=== PATIENT | male | born 2000 | race Caucasian/White ===

== ENCOUNTER 2024-02-18 15:47 | Inpatient (IN) | payer MEDICAID ==
[~2024-02-18] VITALS: Ht 177.8 cm; Wt 75.4 kg
[2024-02-18 16:29] LABS: BASOPHILS # (AUTO) 0.1 X10'3 (0-0.2); BASOPHILS % (AUTO) 0.8 % (0-1); EOSINOPHILS # (AUTO) 0.1 X10'3 (0-0.9); EOSINOPHILS % (AUTO) 0.6 % (0-6); HEMATOCRIT 39.5 % (42.0-52.0); LYMPHOCYTES # (AUTO) 1.5 X10'3 (1.1-4.8); LYMPHOCYTES % (AUTO) 17.6 % (21-51); MEAN CORPUSCULAR HEMOGLOBIN 31.8 PG (27.0-31.0); MEAN CORPUSCULAR HGB CONC 35.5 g/dL (33.0-36.5); MEAN CORPUSCULAR VOLUME 89.7 FL (78-98); MEAN PLATELET VOLUME 8.5 FL (7.4-10.4); MONOCYTES # (AUTO) 0.9 X10'3 (0-0.9); MONOCYTES % (AUTO) 10.1 % (2-12); NEUTROPHILS # (AUTO) 6.1 X10'3 (1.8-7.7); NEUTROPHILS % (AUTO) 70.9 % (42-75); PLATELET COUNT 162 X10'3 (140-440); RED CELL DISTRIBUTION WIDTH 12.9 % (11.5-14.5); WHITE BLOOD COUNT 8.6 X10'3 (4.5-11.0)
[2024-02-18 16:35] LABS: ALBUMIN 4.6 G/DL (3.4-5.0); ANION GAP 10 (8-16); BLOOD UREA NITROGEN 13 MG/DL (7-18); BUN/CREATININE RATIO 13.3 (10.0-20.0); CALCIUM 9.5 MG/DL (8.5-10.1); CHLORIDE 99 MMOL/L (99-107); CREATININE 0.98 MG/DL (0.60-1.10); ETHANOL < 10 MG/DL (<10); GLUCOSE 92 MG/DL (70-104); POTASSIUM 3.9 MMOL/L (3.5-5.1); SODIUM 136 MMOL/L (135-145); TOTAL CARBON DIOXIDE 27.5 MMOL/L (24-32); eCRCL 126 ML/MIN; eGFR > 90 ML/MIN
[2024-02-18 17:00] LABS: URINE AMPHETAMINE SCREEN NEGATIVE (Neg); URINE BARBITUATE SCREEN NEGATIVE (Neg); URINE BENZODIAZEPINES SCREEN NEGATIVE (Neg); URINE CANNABINOID SCREEN NEGATIVE (Neg); URINE COCAINE SCREEN NEGATIVE (Neg); URINE METHADONE SCREEN NEGATIVE (Neg); URINE OPIATE SCREEN NEGATIVE (Neg); URINE PHENCYCLIDINE SCREEN NEGATIVE (Neg)
--- NOTE | 2024-02-18 17:20 | NUR ---
report called to darrian in overflow
[2024-02-18 17:42] LABS: ALANINE AMINOTRANSFERASE 22 U/L (12-78); ALBUMIN/GLOBULIN RATIO 1.5 (1.1-1.5); ALKALINE PHOSPHATASE 77 IU/L (46-116); ASPARTATE AMINO TRANSFERASE 25 U/L (10-37); BILIRUBIN,DIRECT 0.3 MG/DL (0-0.3); BILIRUBIN,TOTAL 1.3 MG/DL (0.1-1.0); THYROID STIMULATING HORMONE 0.49 ulU/ml (0.34-4.50); TOTAL PROTEIN 7.6 G/DL (6.4-8.2)
--- NOTE | 2024-02-18 18:10 | NUR ---
Patient is awake alert. No distress observed. Patient denies S/I. Patient states he is here because he step mom kept making him see things and his dad just caved in. RN asked why he has a knife. Patient states he has a knife for self defense. "I am a patriot". Patient denies planning on using it on anyone. Patient appears disorganized. Possibly first psychotic break.
--- NOTE | 2024-02-18 18:23 | NUR ---
Patient moved back to ED Main.
--- NOTE | 2024-02-18 18:53 | NUR ---
PT RECEIVED IN ED BED 10 SITTING IN NAD, RESPIRATIONS EASY AND REGULAR. MEAL FORM FAXED TO DIETARY AT THIS TIME. PT DENIES ANY HOME MEDICATIONS OR ANY OTHER NEEDS AT THIS TIME
[2024-02-18] MEDS ORDERED: NO HOME MEDS (19:25)
--- NOTE | 2024-02-18 19:39 | NUR ---
PT STILL HUNGRY, SECOND MEAL REQUEST FAXED TO DIETARY AT THIS TIME
--- NOTE | 2024-02-18 19:57 | NUR ---
PT AMBULATORY TO BATHROOM WITH TECH
--- NOTE | 2024-02-18 22:18 | NUR ---
PT RESTING ON R SIDE IN BED IN NAD RESPIRATIONS EASY AND REGULAR NO NEEDS AT THIS TIME
--- NOTE | 2024-02-18 22:40 | NUR ---
PACKET FAXED TO [facility]
--- NOTE | 2024-02-19 00:57 | NUR ---
PT RESTING QUIETLY IN BED IN NAD RESPIRATIONS EASY AND REGULAR NO NEEDS AT THIS TIME
--- NOTE | 2024-02-19 05:41 | NUR ---
PT RESTING IN BED IN NAD RESPIRATIONS EASY AND REGULAR NO NEEDS AT THIS TIME
--- NOTE | 2024-02-19 09:20 | NUR ---
ADINAH CLINICIAN AT BEDSIDE WITH PT.
--- NOTE | 2024-02-19 10:02 | NUR ---
PT IS GETTING ANXIOUS , [facility] LONNY FANG TOLD THE PT THAT HE IS PLACED ON [address] AND [facility] WILL START LOOKING FOR THE PLACEMENT .PT STATED HE WANT TO LEAVE THE HOSPITAL AND GO TO [place] AND GO [place] .PT STANDING BY THE DOOR TRYING TO ESCAPE ,REDIRECTED BACK IN ROOM .SITTER WILL DOING LINE OF SIGHT FOR ALL HOLD PT ROOM 8-10.
--- NOTE | 2024-02-19 10:43 | NUR ---
PT'S FATHER HAS CALLED REQUESTING TO KNOW IF PT IS AT [facility]. PT WAS ASKED IF INFORMATION REGARDING HIS STAY MAY BE GIVEN TO HIS FATHER. PT HAS REQUESTED THAT NO INFORMATION BE GIVEN TO ANYONE TO INCLUDE HIS PARENTS AND THAT HIS STATUS BE MADE CONFIDENTIAL. REGISTRATION WAS NOTIFIED TO MAKE PT CONFIDENTIAL.
--- NOTE | 2024-02-19 11:32 | NUR ---
ASSUMED CARE OF PT FROM PREVIOUS RN. PT IS SITTING UP IN BED WITH HIS EYES CLOSED. PHONG CRUZ IS CURRENTLY LINE OF SIGHT. NO APPEARENT S/S OF DISTRESSNOTED AT THIS TIME.
--- NOTE | 2024-02-19 11:57 | NUR ---
RECEIVED PHONE CALL FROM [facility] STATING THAT PT HAS BEEN APPROVED FOR A BED. NO BEDS AVALIABLE AT THIS TIME BUT NURSE STATED THAT THEY ARE EXPECTING DISCHARGES TODAY AT SOME POINT AND WILL CALL BACK WHEN BED IS AVALIABLE.
--- NOTE | 2024-02-19 12:17 | NUR ---
PT REQUESTING SECOND MEAL TRAY, MEAL REQUEST HAS BEEN FAXED TO [facility].
--- NOTE | 2024-02-19 13:19 | NUR ---
pt is asleep in bed at this time. visable rise and fall of chest.
--- NOTE | 2024-02-19 13:48 | NUR ---
pt walked to the bathroom with lion uriarte. pt calm and cooperative at this time.
--- NOTE | 2024-02-19 14:45 | NUR ---
pt resting in bed quietly .no distress noted.
--- NOTE | 2024-02-19 14:54 | NUR ---
pt sitting up in bed with his finger in his mouth. no appearant signs of distress noted at this time.
--- NOTE | 2024-02-19 15:42 | NUR ---
pt laying in bed, visable rise and fall of chest. no appearant signs of distress noted at this time.
[2024-02-19 15:56] VITALS: BP 124/79; PULSE 102; RESP 16; TEMP 98.1; O2SAT 99
[2024-02-19] MEDS: haloperidol lactate 5mg/ml inj ONE (16:24)
[2024-02-19] MEDS: diphenhydrAMINE 50 mg/ml inj ONE (16:25)
[2024-02-19] MEDS: LORazepam 2 mg/ml vial ONE ×2 (16:25→17:12)
[2024-02-19] MEDS ORDERED: loperamide 2mg capsule PO PRN (16:40)
[2024-02-19] MEDS ORDERED: acetaminophen 325mg tablet PO PRN ×2 (16:40)
[2024-02-19] MEDS ORDERED: magnesium hydroxide 30ml (MOM) UD suspension PO PRN (16:40)
[2024-02-19] MEDS ORDERED: mag hydrox/Alum hydrox/simeth 30ml oral suspension PO PRN (16:40)
[2024-02-19 17:17] VITALS: RESP 16; O2SAT 99
--- NOTE | 2024-02-19 17:49 | NUR ---
Admit Note: Pt arrived on the unit from ED OF at 1556 via w/c accompanied by [facility] and security. Pt paranoid, delusional, hyper confucianism, acutely psychotic, agitated, unable to follow direction. Reality orientation, reassurance he was safe, verbal de-escalation, and show of support/force ineffective. Pt was refusing to cooperate with the admission process. Pt hyperverbal, not allowing staff to get a word in edgewise, demanding to call his shop supervisor, he needed to leave to find a orthodoxy to be with his people. Pt not receptive to oral medication, pt with poor insight/denial of mental health issues. Obtained order from Dr Britton who was present on the unit for emergent IM meds Haldol 10 mg, Ativan 2 mg, and Benadryl 50 mg. Pt was escorted to the observation room. Pt did not fight the injections but allowed them to be given without incident. Afterwards, he was amiable to showering, skin check done with several security officers present in the shower room. Skin intact, no issues. Pt showered, dressed, walked back down the observation room where he was given water and a snack while awaiting for a private room to be cleaned and ready. Once room 329 ready, pt walked down to his room. Pt unable to participate in the [facility] Suicide Risk Assessment, too acutely psychotic. Pt was BIB police to ED after multiple 911 calls were made about pt threatening to kill someone while in possession of a knife. Police report that he has had a couple of altercations in the past couple of days. Pt made statements about how he will always go out of his way to kill molesters because he lives in [place], he will kill anybody who takes away innocence. Pt fixated on belief that others are out to harm him including his father, mother and girlfriend.Pt believed he should be released so he can follow God's plan. Per family report, onset of symptoms began in 2020 when pt was around age 20 with depression and paranoia, accused everyone of talking about him. Father reports that pt has been threatening to kill other people including family. Tox screen was negative.
--- NOTE | 2024-02-19 23:15 | NUR ---
Nursing Progress Note: Problems: Psychotic symptoms, noncompliance with treatment 2nd to poor insight Interventions: One to one with the patient and reviewed with him the structure of the evening and that we would be checking on him throughout the night. He was ensured that he was safe here on the unit and that tomorrow the provider would meet with him. Brief physical assessment completed. He is on q 1 hour RN rounds and q 15 minute safety checks. Response: The patient was up on the unit briefly and had snack with peers than sat for a brief period in the rec room watching TV. He was pleasant when approached. He has refused to allow his vital signs taken. When asked why he was here he stated that he had been in the ab[place] "to get away from my house and I had a knife" He did not state that he threatened others with the knife. He denies having mental health issues. He denies thoughts to harm himself or others. He denies hearing voices. Plan: Continue plan of care.
[2024-02-20 07:30] VITALS: BP 103/70; PULSE 102; RESP 16; TEMP 98.2; O2SAT 99
[2024-02-20 08:21] LABS: CHOLESTEROL 120 MG/DL (0-200); HDL CHOLESTEROL 59 MG/DL (35-60); HEMOGLOBIN A1C 5.1 % (4.5-6.2); LDL CHOLESTEROL 48 MG/DL (50-100); TRIGLYCERIDES 34 MG/DL (20-135)
--- NOTE | 2024-02-20 16:34 | NUR ---
Nursing Progress Notes: Problems: Psychosis Interventions: Q15min rounding; QH RN rounding; Medication evaluation; administration and monitoring; Active listening and therapeutic communication; maintained a safe and supportive environment; provided clear and simple instructions; open-ended questions; Response: Upon shift change noted patient up in room sleeping. Up for meals. Flat affect noted. Denies all mental health s/sx. When RN asked if patient was experiencing any +AH or +VH patient gave an intense stare into this nurses eyes and shakes head no. Noted socializing with cohort well. Noted signs of paranoia as patient was hyper-aware of his surroundings. Denies pain however has some discomfort to his legs as he has numerous superficial scratches up to his thighs bilaterally. Reports, "I was running away from someone in my house." Mid morning noted participation in group time. Went about his day socializing with suyapa and taking naps. Will continue to monitor. Plan: Continue plan of care.
[2024-02-20 19:00] VITALS: RESP 14; O2SAT 96
[2024-02-20 20:00] VITALS: BP 141/76; PULSE 81; RESP 14; TEMP 97.8; O2SAT 96
--- NOTE | 2024-02-21 03:53 | NUR ---
Nursing Progress Note: Jake Problems: Psychotic symptoms, noncompliance with treatment 2nd to poor insight Interventions: Performed 1:1 nursing assessment, provided medication administration, education, monitoring, active listening/therapeutic communication, Q15 minute rounding. Hourly nursing rounds. Maintained a safe and supportive environment. Response: Pt is calm and cooperative with care. Pt denies all mental health symptoms. "All I did was run through the abreu". Patient exhibits paranoia, believes that people are after him, delusions that he is doing God's plan. Pt hung around the other peers getting a "Karaoke Night" together. Pt has no HS medications. "I'm ready to go home". Monitor for safety. Plan: Continue plan of care.
[2024-02-21 07:45] VITALS: BP 105/63; PULSE 80; RESP 18; TEMP 97.8; O2SAT 97
[2024-02-21 08:12] VITALS: RESP 18; O2SAT 97
--- NOTE | 2024-02-21 14:14 | NUR ---
Nursing Progress Notes: Problems: Psychosis, Agitation, Noncompliance for medications, Interventions: Q15min rounding; RN rounding; Medication evaluation; administration and monitoring; Active listening and therapeutic communication; maintained a safe and supportive environment; provided clear and simple instructions; open-ended questions; Response: Upon shift change noted patient up in room sleeping. Patient woke up for meals. Very pleasant/calm and smiling. Seen socializing appropriately on the unit with cohort. Eager to go home. Was asking about when he could go home since his hold is up today however James Thomas extended his hold and patient became upset and doesn't understand why. "I don't understand why I'm here. I called the product safety coordinator and I reported someone chasing ME. And they put ME in here?" Will continue to monitor. Plan: Continue plan of care. Addendum: 02/21/24 at 1443 by Alyssia Servin RN He denies SI, HI, AH or VH.
[2024-02-21 19:00] VITALS: RESP 19; O2SAT 97
[2024-02-21 20:00] VITALS: BP 126/76; PULSE 101; RESP 19; TEMP 98.6; O2SAT 97
--- NOTE | 2024-02-22 04:01 | NUR ---
Nursing Progress Notes: Problems: Paranoia, Delusions Interventions: Q15min rounding; QH RN rounding; Medication evaluation; administration and monitoring; Active listening and therapeutic communication; maintained a safe and supportive environment; provided clear and simple instructions; open-ended questions; Response: Pt is hyper at start of shift. Pt is seen running around unit from his room to day or rec room. Pt is getting close to another female pt and they both were reminded of unit rules. Pt talked about some of the reasons he was running through the abreu. "I was getting away from my dad and his GF because she puts evil thing in my head. You know we are all monkey's. 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 Then crazy things were going down and there were people trying to kill me so I left and moved up here". Pt is paranoid and delusional. Proofer Apprentice asked what his discharge plan is, would he be going back to dad's. "I'm going to [employer]. They help you with food, transportation and help you get into college". Proofer Apprentice asked pt what he wanted to go to college to be. "I'm going to Engineering school". Pt has no scheduled medications. Monitor for safety. Plan: Continue plan of care.
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
[2024-02-22 07:45] VITALS: BP 126/76; PULSE 101; RESP 19; TEMP 98.6; O2SAT 97
[2024-02-22 08:42] VITALS: RESP 19; O2SAT 97
--- NOTE | 2024-02-22 08:49 | NUR ---
MEDI-LIBBY APPLICATION SUBMITTED 02/22/24 RCOKY Vieira
--- NOTE | 2024-02-22 11:28 | NUR ---
Initial: Pt admit for psychosis. Currently on vegan diet and eating well, documented with 100% PO intake of all meals with the exception of 50% PO intake of dinner 02/19. Overall pt meeting 100% estimated nutrient needs. LBM 02/20 per EMR. No nutrition intervention warranted at this time. Will continue to follow and make recommendations as appropriate. Recommendations: 1) Continue vegan diet 2) Bowel care PRN 3) Weekly scaled weights Addendum: 02/22/24 at [address] Amended: Links added.
--- NOTE | 2024-02-22 13:32 | NUR ---
Nursing Progress Notes: Problems: Delusional, demanding to go home today Interventions: Q15min rounding; QH RN rounding; Medication evaluation; administration and monitoring; Active listening and therapeutic communication; maintained a safe and supportive environment; provided clear and simple instructions; open-ended questions; Response: Upon shift change noted patient up in room sleeping. Patient woke up for meals. Very pleasant/calm and smiling. Seen socializing appropriately on the unit with cohort. Eager to go home. Reports that he has a hearing today and that he will be going home. "This is bullshit." Inquired if he had a discharge plan and he reports that he has set something up with [facility]. Has poor insight into his mental illness. Continues to deny SI, HI, AH or VH. Delusional statements made regarding why he was admitted. Patient lost his court hearing today and his hold was upheld. Per patient's rights advocate reported that he did was calm during the first part of the meeting then he became upset during the last portion. Will continue to monitor. Plan: Continue plan of care.
[2024-02-22] MEDS: cyanocobalamin 500mcg tablet PO SCH (17:34)
[2024-02-22 19:18] VITALS: RESP 16; O2SAT 96
[2024-02-22 19:20] VITALS: BP 133/61; PULSE 82; RESP 16; TEMP 98.3; O2SAT 16
[2024-02-22] MEDS: PALIPERIDONE 3 MG TAB.ER.24 PO STA (20:01)
--- NOTE | 2024-02-23 00:48 | NUR ---
Nursing Progress Note: Problems: Delusional beliefs, poor insight into his need for treatment Interventions: One to one with the patient to assess severity of his thought disorder. Discussed medications with him and provider, León Guzman made aware that patient is agreeing to take medications and orders received. Medication administration and education. Physical assessment completed. He is on q 15 minute safety checks and Q 1 hour RN rounding. Response: The patient was up and social with peers on the unit. He was pleasant and cooperative with the evening assessment. He stated that his mood was "normal" and "good" When asked why he was here he stated that while at home his dad's girlfriend was sending him images telepathically. He stated that he would take medications that were ordered so that he could prove everyone wrong about having psychosis. He then indeed took the medications that were offered. He did voice concern that the medications might change his personality or somehow harm him. He was reassured and currently appears to be sleeping. Plan: Continue plan of care.
[2024-02-23 07:30] VITALS: BP 103/64; PULSE 64; RESP 12; TEMP 97.8; O2SAT 98
[2024-02-23] MEDS: LORazepam 2 mg/ml vial ONE (08:37)
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
[2024-02-23 18:58] VITALS: RESP 18; O2SAT 100
[2024-02-23 19:49] VITALS: BP 109/65; PULSE 75; RESP 18; TEMP 97.8; O2SAT 100
[2024-02-23] MEDS: PALIPERIDONE 3 MG TAB.ER.24 PO SCH (20:58)
[2024-02-23] MEDS: diphenhydrAMINE 25mg capsule PO PRN (20:58)
--- NOTE | 2024-02-24 00:15 | NUR ---
Nursing Progress Note: Problems: Delusional beliefs, making inappropriate comments to peers, insomnia and itching. Interventions: One to one with the patient to assess severity of his thought disorder. Grayson Galvan made aware that patient is complaining of not sleeping and the bed linens causing itching and orders received. Medication administration and education. Physical assessment completed. He is on q 15 minute safety checks and Q 1 hour RN rounding. Patient redirected as needed. Response: The patient has been up on the unit and has had to be redirected numerous times to not make inappropriate comments to peers ie "fuck off" and "what's up nigger" He denied that he is hearing voices but was laughing inappropriately. He stated his mood was "normal" When asked about side effects to his medications he stated, "No it's great! It helps me to think really really fast!" He did complain of poor sleep because staff were opening his door to check on him and the bed linens causing him to itch. Benadryl given at and he does appear to be sleeping at this time. Plan: Continue plan of care.
[2024-02-24 07:00] VITALS: RESP 16; O2SAT 100
[2024-02-24 08:00] VITALS: BP 99/56; PULSE 56; RESP 16; TEMP 97; O2SAT 100
--- NOTE | 2024-02-24 17:00 | NUR ---
Nursing Progress Note: Jake Problems: Disorganized, delusional. Interventions: One to one with the patient to assess severity of his thought disorder. Grayson Galvan made aware that patient is complaining of not sleeping and the bed linens causing itching and orders received. Medication administration and education. Physical assessment completed. He is on q 15 minute safety checks and Q 1 hour RN rounding. Patient redirected as needed. Response: Patient is resting quietly in bed at the start of the shift. Sleeps though breakfast. Cooperative with medication and 1:1 assessment. Denies any thoughts of harming himself or others. Denies any hallucinations. States he was admitted here due to "a bad living situation." Denies having any mental health issues. Patient sleeps through the morning. In the afternoon the patient plays corn hole with peers but socializes very little and wears headphones. He is noted running in the arteaga and bouncing in a chair in the rec room. Patient is disorganized at times and does not appear to understand why he is here except that he had a disagreement with family. Plan: Continues to require interruption of current crisis in a safe and therapeutic environment. Addendum: 02/24/24 at 1711 by Mauricio Albright RN (Coop) TOP TRIMMER documentation: I have reviewed and agree with all interventions, assessments performed and [facility].
[2024-02-24] MEDS: JUVEN Smoothie Arginine/Glut./Ca2+Bmb (Juven 19.3pkt) 240ml cup PO SCH (18:00)
[2024-02-24] MEDS: Melatonin 3mg tablet PO PRN (19:36)
[2024-02-24 19:46] VITALS: RESP 13; O2SAT 100
[2024-02-24 19:48] VITALS: BP 106/61; PULSE 75; RESP 13; TEMP 98; O2SAT 100
--- NOTE | 2024-02-24 23:18 | NUR ---
Nursing Progress Note: Problems: Delusional beliefs, making inappropriate comments to peers. Gravely disabled with poor insight and judgement Interventions: One to one with the patient to assess severity of his thought disorder. Medication administration and education. Physical assessment completed. He is on q 15 minute safety checks and Q 1 hour RN rounding. Patient redirected as needed. The patient is watched closely by all staff 2nd to his inappropriate behavior on the unit. enterostomal therapy nurse aware of patient behaviors. Response: The patient's behavior is very strange. During the one to one assessment he was laughing inappropriately. He believes he only has to take medications for 5 days and then he will be discharged back to his father. He called another male peer a "Faggot" and when a tech told him that would not be tolerated and and was inappropriate he told her "You can just shut up" He made a reference of "killing evil people" but declined to more specific. He stated that his plan is go to [employer] 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 He also stated "A lot of people know me as Parker" Plan: Continue plan of care.
[2024-02-25 07:30] VITALS: BP 120/86; PULSE 82; RESP 16; TEMP 97.7; O2SAT 100
[2024-02-25 08:30] VITALS: RESP 16; O2SAT 100
--- NOTE | 2024-02-25 14:29 | NUR ---
Nursing progress note: Problem: Fixed delusions, distorted reality, gravely disabled with poor insight into his condition Interventions: Q15min rounding; QH RN rounding; Medication evaluation; administration and monitoring; Active listening and therapeutic communication; maintained a safe and supportive environment; provided clear and simple instructions; open-ended questions; provided number for his father Response: Upon turn of shift noted patient to wake up and go to rec room. Inquired about how patient was doing. Denies all mental health s/sx SI, HI, AH, or VH. Reports that he plans on going home to his dads once doctor releases him. 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 When RN asked if he has produced any music. He reported, "No because I'm cursed so they didn't allow me to put any music out. I'm famous in person. People hear my music in person." Compliant with meds. He told his dad that he's going to take his meds so he can see that he is okay. He insinuated that he will not be taking meds when he leaves here. Seen out in milieu walking halls or in rec room. Spoke with dad on the phone today. Will continue to monitor. Plan: Stabilize and treat.
[2024-02-25] MEDS ORDERED: calamine LOTION TP PRN (15:50)
[2024-02-25 19:07] VITALS: RESP 14; O2SAT 97
[2024-02-25 19:09] VITALS: BP 105/60; PULSE 74; RESP 14; TEMP 98.2; O2SAT 97
--- NOTE | 2024-02-25 23:22 | NUR ---
Nursing Progress Note: Problems: Delusional beliefs, making inappropriate comments to peers. Gravely disabled with poor insight and judgement Interventions: One to one with the patient to assess severity of his thought disorder. Medication administration and education. Physical assessment completed. He is on q 15 minute safety checks and Q 1 hour RN rounding. Patient redirected as needed. The patient is watched closely by all staff 2nd to his inappropriate behavior on the unit. Response: The patient has been up on the unit and has alienated peers by his inappropriate comments. He laughs inappropriately. He is intrusive at times. His mood is elevated. He did participate in the evening assessment but is guarded. He made a comment that it tricks people to take medications but did not elaborate. He did refuse to take the Paliperidone and stated that he was on the wrong medicine and he needed to switch to only taking Zoloft. He believes he has musical abilities. He made offensive comments about white superiority and "skinning nigger babies" and had to be redirected. At one point he was obsessively picking at his skin and putting something in his mouth which appeared very odd to the staff that observed it. His insight and judgement are very poor. He stated that he would take Zoloft after he was discharged, "until I can escape" When asked what he needed to escape from he only stated, "negative energy" Plan: Continue plan of care.
[2024-02-26 07:00] VITALS: BP 111/61; PULSE 50; RESP 12; TEMP 97.8; O2SAT 98
[2024-02-26 08:53] VITALS: RESP 12; O2SAT 98
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
[2024-02-26] MEDS: LORazepam 1 MG tablet PO ONE (16:30)
[2024-02-26 19:00] VITALS: RESP 18; O2SAT 99
[2024-02-26 20:00] VITALS: BP 142/76; PULSE 102; RESP 18; TEMP 98.3; O2SAT 99
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
[2024-02-27 07:05] VITALS: BP 130/62; PULSE 62; RESP 16; TEMP 98.1; O2SAT 99
[2024-02-27 08:09] VITALS: RESP 16; O2SAT 99
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
[2024-02-27 20:22] VITALS: BP 135/85; PULSE 89; RESP 18; TEMP 97.3; O2SAT 99
--- NOTE | 2024-02-28 01:27 | NUR ---
Nursing Progress Note: Problems: Delusional beliefs. Gravely disabled with poor insight and judgement Interventions: One to one with the patient to assess severity of his thought disorder. Medications administered. Physical assessment completed. He is on q 15 minute safety checks and Q 1 hour RN rounding. Patient redirected as needed. The patient is watched closely by all staff 2nd to his inappropriate behavior on the unit. Discussed his plans for DC Response: The patient was cooperative with the evening assessment. He did agree to take the Invega and added, "He's making me take it to get out" He stated that the Invega made him feel "more focused but care less" He stated his mood was "perfect" He believes he can returns to his father's home and when told that might not be the case he was insistent "That's not the reality we live in" He became quite intense and angry when talking about his father's girlfriend stating "It's despicable for someone to go against God like that!" and called her a "nasty sinner" He makes cryptic comments about good overcoming evil etc. Plan: Continue plan of care.
[2024-02-28 07:30] VITALS: BP 93/40; PULSE 64; RESP 18; TEMP 98.6; O2SAT 98
--- NOTE | 2024-02-28 13:36 | NUR ---
Left message with [facility] (María Elena -# [phone]), to see if there are any post hospital beds available. ROCKY Vieira
--- NOTE | 2024-02-28 17:23 | NUR ---
Nursing progress note: Andrey Problem: Delusions, gravely disabled with poor insight into his condition Interventions: Q15min rounding; QH RN rounding; Medication evaluation; administration and monitoring; Active listening and therapeutic communication; maintained a safe and supportive environment; provided clear and simple instructions; open-ended questions; Response: RN received pt. asleep in bed at change of shift. Pt. awoke and took AM medication and ate breakfast in the community room. After breakfast pt. observed watching TV in Rec Room. Pt. social with peers and staff. 1:1 assessment done in Rec Room, pt. denies SI/HI, A/V hallucinations, pt. gives minimal responses to RN's questions and appears annoyed with questions. Pt. observed watching TV in Rec Room most of the day. Plan: Stabilize and treat.
[2024-02-28 19:00] VITALS: RESP 14; O2SAT 97
[2024-02-28 20:00] VITALS: BP 120/65; PULSE 86; RESP 14; TEMP 97.9; O2SAT 97
[2024-02-28] MEDS: PALIPERIDONE 3 MG TAB.ER.24 PO SCH (20:22)
--- NOTE | 2024-02-29 01:47 | NUR ---
Nursing Progress Note: Jake Problems: Delusional beliefs. Gravely disabled with poor insight and judgement Interventions: One to one with the patient to assess severity of his thought disorder. Medications administered. Physical assessment completed. He is on q 15 minute safety checks and Q 1 hour RN rounding. Patient redirected as needed. Response: Pt is watching TV with peers in rec room. Pt is dismissive during assessment. Pt denies all mental health symptoms but takes his medication so he can leave. Pt took his HS Invega with some prompting. "What is this, where is my Zoloft". Payroll Benefits Administrator explained this is his regular night time medication. "The dose was increased today". Pt is seen galloping down the hallway and was asked to walk. "Why do I have to walk. There is nothing wrong with how I came down the arteaga". Pt thinks his dad's girlfriend puts evil thoughts in his head. "I don't know why my dad takes her side over mine". Monitor for safety. Plan: Continue plan of care.
[2024-02-29 07:30] VITALS: BP 101/62; PULSE 64; RESP 16; TEMP 97.8; O2SAT 100
--- NOTE | 2024-02-29 17:26 | NUR ---
Nursing progress note: Andrey Problem: Delusions, gravely disabled with poor insight into his mental illness Interventions: Q15min rounding; QH RN rounding; Medication evaluation; administration and monitoring; Active listening and therapeutic communication; maintained a safe and supportive environment; provided clear and simple instructions. Response: RN received pt. asleep in bed at change of shift. Pt. awoke and took medications. Pt. ate breakfast in dining room. Pt. observed watching TV in Rec Room. 1:1 done at bedside, pt. is guarded, offers minimal information to RN's questions. Pt. denies SI/HI, A/V hallucinations. Pt. states, he's feeling "Great! My life is so good!" Pt. is social with peers. Pt. running back and forth in hallway at times. RN informed pt. that it's not allowed because of safety concerns, pt. agreed to stop. Plan: Stabilize and treat.
[2024-02-29 19:00] VITALS: RESP 18; O2SAT 99
[2024-02-29 20:00] VITALS: BP 115/73; PULSE 97; RESP 20; TEMP 98.1; O2SAT 99
--- NOTE | 2024-03-01 03:30 | NUR ---
Nursing Progress Note: Problems: Delusional beliefs, making inappropriate comments to peers. Gravely disabled with poor insight and judgement Interventions: Q15min rounding; QH RN rounding; Medication evaluation; administration and monitoring; Active listening and therapeutic communication; maintained a safe and supportive environment; provided clear and simple instructions. Response: Received patient up in the day room sitting next to one of the Techs. Patient not sitting with peers. Patient remained calm and cooperative throughout this shift. Wanted to know what the seclusion room was for. Patient observed all over the unit but not in his room until almost midnight. Patient was up late. When sleeping sleeps flat on back but does not seem disturbed by safety checks. Cooperative with medications and assessment. Continue to monitor for safety. Plan: Continue plan of care.
[2024-03-01 07:00] VITALS: RESP 16; O2SAT 99
[2024-03-01 08:00] VITALS: BP 105/56; PULSE 71; RESP 16; TEMP 98.2; O2SAT 99
--- NOTE | 2024-03-01 14:57 | NUR ---
DISCHARGE PLAN Jake is discharging today. He plans on staying at the [facility]. He reported he will take his medications upon discharge. He wanted his meds sent to [facility] on [facility]. Provided him with information on the [facility] for follow up. Called Jake's dad, Demetrius (ph# [phone]), to inform him that Jake is discharging today. Informed him that Jake is planning on staying at the [facility]. ROCKY Vieira
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
[2024-03-01] MEDS ORDERED: PALI6TAB PO (15:57)
== END 2024-03-01 16:24 | disposition home or self-care (01) | DRG 751 ==
LOC: EEVIPCON 15:49 → ER 15:49 → ADULT MH 02-19 11:45
PROVIDERS: ADMIT Psychiatry & Neurology Psychiatry; ATTEND Psychiatry & Neurology Psychiatry
PROC: GZHZZZZ Group Psychotherapy (ICD-10-PCS; principal; 2024-02-23)
PROC: GZ51ZZZ Individual Psychotherapy, Behavioral (ICD-10-PCS; 2024-02-23)
DX: F29 Unspecified psychosis not due to a substance or known physiological condition (principal); F22 Delusional disorders; F32.A Depression, unspecified; Z20.822 Contact with and (suspected) exposure to COVID-19; R45.850 Homicidal ideations
CPT/HCPCS: 36415; 80048; 80061; 80076; 80305; 80320; 83036; 84443; 85025; 87081; 87811; 99285; J1200; J1630; J2060; Q0163